=== PATIENT | male | born 1945 | race Caucasian/White ===

== ENCOUNTER 2022-07-19 07:51 | Outpatient (RCR) | payer MEDICARE, BC, SELFPAY | END 2022-09-06 08:38 | disposition home or self-care (01) | PROVIDERS: PCP Family Medicine; Visit Provider Student in an Organized Health Care Education/Training Program | DX: I73.9 Peripheral vascular disease, unspecified (principal); Z51.89 Encounter for other specified aftercare | CPT/HCPCS: 97110; 97140; 97162 ==

== ENCOUNTER 2022-07-31 08:55 | Outpatient (CLI) | payer MEDICARE, BC, SELFPAY | END 2022-07-31 08:56 | disposition home or self-care (01) | LOC: AMB 08-09 19:29 | PROVIDERS: PCP Family Medicine; Visit Provider Family Medicine | DX: S49.91XA Unspecified injury of right shoulder and upper arm, initial encounter (principal); W01.0XXA Fall on same level from slipping, tripping and stumbling without subsequent striking against object, initial encounter; Y92.008 Other place in unspecified non-institutional (private) residence as the place of occurrence of the external cause | CPT/HCPCS: A0425; A0427 ==

== ENCOUNTER 2022-07-31 09:28 | Day surgery (SDC) | payer MEDICARE, BC, SELFPAY ==
[2022-07-31] VITALS (29 sets, daily range): BP systolic 98–157; BP diastolic 56–109; PULSE 70–85; RESP 12–18; TEMP 35.9–36.6; O2SAT 94–100; BMI 29.3; BMI 32.6
--- NOTE | 2022-07-31 | CRLHL7_ITS ---
For Patients: As a result of the Cures Act, medical imaging exams and procedure reports are released immediately into your electronic medical record. You may view this report before your referring provider. If you have questions, please contact your health care provider. INDICATION: Injury COMPARISON: None TECHNIQUE: Two views of the right humerus were acquired FINDINGS: Demineralization. Comminuted fracture involving the right humerus. This is displaced and extends as high as the greater tuberosity. This partially extends into the middle 3rd of the right humerus. No visible dislocation. IMPRESSION: Comminuted displaced right humerus fracture extending as high as the greater tuberosity. Dictated by Jay Jay Murray MD @ 07/31/2022 11:35:19 AM (Electronically Signed)
--- NOTE | 2022-07-31 09:58 | CRLHL7_ITS ---
For Patients: As a result of the Cures Act, medical imaging exams and procedure reports are released immediately into your electronic medical record. You may view this report before your referring provider. If you have questions, please contact your health care provider. Indication: Injury Technique: Three views of the right shoulder were acquired Comparison: None Findings: No dislocation at the glenohumeral or acromioclavicular joint. Moderate acromioclavicular osteoarthritis. Demineralization. Comminuted fracture involving the proximal right humerus. This is displaced. A component extends as high as the greater tuberosity. Impression: Comminuted displaced proximal right humerus fracture extending as high as the greater tuberosity. Dictated by Jay Jay Murray MD @ 07/31/2022 11:33:50 AM (Electronically Signed)
--- NOTE | 2022-07-31 09:59 | CRLHL7_ITS ---
For Patients: As a result of the Century Cures Act, medical imaging exams and procedure reports are released immediately into your electronic medical record. You may view this report before your referring provider. If you have questions, please contact your health care provider. INDICATION: Injury COMPARISON: None TECHNIQUE: CT examination of the cervical spine is performed without contrast using spiral technique. Thin axial, sagittal and coronal reconstructions were made. Please note that all CT scans at this facility use dose modulation, iterative reconstruction, and/or weight-based dosing when appropriate to reduce radiation dose to as low as reasonably achievable. FINDINGS: : There is straightening which is usually due to muscle spasm, positioning or immobilization device. Moderate degenerative changes diffusely but most affecting the mid and lower cervical spine. There is no visible acute fracture, dislocation or destructive process. There are dense atherosclerotic vascular calcifications. IMPRESSION: Straightening. Degenerative changes. No visible acute fracture, dislocation or destructive process. Please note that all CT scans at this facility use dose modulation, iterative reconstruction, and/or weight-based dosing when appropriate to reduce radiation dose to as low as reasonably achievable. Dictated by Jay Jay Murray MD @ 07/31/2022 11:08:30 AM (Electronically Signed)
--- NOTE | 2022-07-31 09:59 | CRLHL7_ITS ---
For Patients: As a result of the Cures Act, medical imaging exams and procedure reports are released immediately into your electronic medical record. You may view this report before your referring provider. If you have questions, please contact your health care provider. INDICATION: Injury COMPARISON: No prior chest radiograph TECHNIQUE: AP sitting and sitting lateral views of the chest were acquired FINDINGS: TUBES AND LINES: None. HEART AND MEDIASTINUM: The heart size is normal. The mediastinal contour appears normal for patient age. LUNGS AND PLEURAL SPACES: The lungs appear normal.The pleural spaces are unremarkable. OSSEOUS STRUCTURES: The osseous structures of the thorax as visualized appear normal. Incidental visualization of a known right humerus fracture. IMPRESSION: No evidence of active pulmonary disease. No visible acute posttraumatic findings regarding the thorax proper. Incidental visualization of a known right humerus fracture. Dictated by Jay Jay Murray MD @ 07/31/2022 11:32:13 AM (Electronically Signed)
--- NOTE | 2022-07-31 09:59 | CRLHL7_ITS ---
For Patients: As a result of the Century Cures Act, medical imaging exams and procedure reports are released immediately into your electronic medical record. You may view this report before your referring provider. If you have questions, please contact your health care provider. INDICATION: Injury COMPARISON: None TECHNIQUE: CT examination of the head was performed as axial sections without intravenous contrast. Images were obtained from the vertex of the skull through the skull base. Please note that all CT scans at this facility use dose modulation, iterative reconstruction, and/or weight-based dosing when appropriate to reduce radiation dose to as low as reasonably achievable. FINDINGS: The brain shows no sign of mass lesion, mass effect, hemorrhage, or edema. There are involutional changes. There is mild cortical atrophy and there is mild white matter disease. There is no hydrocephalus. The visualized portions of the orbits are normal in appearance. The osseous structures are normal in appearance with no sign of abnormality in the skull base or calvarium. IMPRESSION: Involutional changes. No acute-appearing findings. Please note that all CT scans at this facility use dose modulation, iterative reconstruction, and/or weight-based dosing when appropriate to reduce radiation dose to as low as reasonably achievable. Dictated by Jay Jay Murray MD @ 07/31/2022 11:05:16 AM (Electronically Signed)
--- NOTE | 2022-07-31 10:32 | ED.NURSE ---
Imaging came to get pt. After getting up and trasfering to chair pt c/o being dizzy, head rolled back. Imaging called for help. This nurse arrived at pt's side. Pt diaphoretic. B/p taken. . Pt stated that he felt like he was dreaming. Dr Lester updated.
[2022-07-31] MEDS: ONDANSETRON 2 MG/ML inj 4 MG IVP (10:59)
[2022-07-31] MEDS: HYDROmorphone 0.5 mg/0.5 ml inj IVP ×4 (10:59→23:19)
[2022-07-31] MEDS: 0.9 % SODIUM CHLORIDE 500 ML 500 ML IV (11:04)
[2022-07-31 11:46] LABS: Basophils Percent Auto 0.2 % (0.0-3.0); Eosinophils Percent Auto 0.2 % (0.0-7.0); Hematocrit 38.3 % (37.0-53.0); Hemoglobin* 13.2 gm/dL (13.5-17.5); Immature Granulocytes Pct Auto 0.2 %; Lymphocytes Percent Auto 15.7 % (20-44); Mean Corpuscular HGB Conc 35 gm/dL (32-36); Mean Corpuscular Hemoglobin 33 pg (26-34); Mean Corpuscular Volume 97 fL (80-100); Monocytes Percent Auto 7.3 % (0.0-11.0); Neutrophils Percent Auto 76.4 % (42.0-72.0); Platelet Count* 166 K/uL (140-440); RDW Coefficient of Variation % 14.3 % (11.5-15.5); Red Blood Count 3.96 m/uL (4.30-5.90); White Blood Count* 12.13 K/uL (4.50-11.00)
[2022-07-31 11:47] LABS: Slide Review Reflex No
--- NOTE | 2022-07-31 12:04 | ED_ITS ---
HPI - Neck Pain/Injury General Date Seen: 07/31/22 Chief Complaint: Shoulder Injury/Pain Stated Complaint: R shoulder pain Time Seen by Provider: 07/31/22 09:42 Source: patient Mode of arrival: EMS Limitations: no limitations History of Present Illness HPI Narrative: Patient is 76-year-old gentleman who lives independently who this morning fell and slipped and rammed his right shoulder into table on falling down. He has pain in his right shoulder and really inability to lift his right arm since then, no numbness tingling or weakness, denies any neck or head pain, and says he really did hit his head or neck, no problems with breathing or shortness of breath, he was able to clean himself up, as there was an episode of incontinence, rightly was unable to get off the toilet. He then called EMS, cause he did think he can bring himself to the hospital. Ambulance did give him some fentanyl in route here. complaint: other Onset (ago): minute(s) Radiation: right shoulder Severity: moderate Quality: aching Duration: constant Relieving factors: immobilization Exacerbating factors: movement of extremity Context: fall Associated symptoms: none Treatments prior to arrival: none Related Data Home Medications Medication Instructions Recorded Confirmed allopurinol 300 mg tablet 300 mg PO DAILY 07/31/22 07/31/22 cilostazol 100 mg tablet 100 mg PO BID 07/31/22 07/31/22 rosuvastatin 10 mg tablet 10 mg PO DAILY 07/31/22 07/31/22 Allergies Allergy/AdvReac Type Severity Reaction Status Date / Time Penicillins Allergy Intermediate Verified 07/31/22 09:40 Review of Systems Status of ROS: Reports: 10 or more systems reviewed and unremarkable except as noted in History and below [facility] Social History Smoking Status: Current some day smoker What tobacco products do you use: cigars Do you use any of these nicotine containing products: None Second hand tobacco smoke exposure: No How often do you have a drink containing alcohol: 2-3 times a week How many standard drinks containing alcohol do you have on a typical day: 3 or 4 AUDIT-C Alcohol total score: 4 Non-prescribed substance use: denies use Exam Narrative: Exam Narrative: Patient is peaking normally, problem with slurring words, oriented x3. Head eyes ears nose and throat exam show equal pupils, no scleral icterus, extraocular muscles are normal, no facial droop, speech is normal, trachea normal and midline. Thyroid normal midline palpable not enlarged. Chest shows symmetrical rise bilaterally, normal auscultation with no wheezes, no increased work of breathing, no overt bruising or lesions seen, no tenderness is noted on auscultation. Heart sounds normal with no S3-S4 no murmurs clicks or gallops. Abdomen shows no obvious masses or hepatosplenomegaly, no organomegaly, bowel sounds are normal in all quadrants. No tenderness is noted also in all quadrants. Upper and lower extremities with the exception of the right upper extremity show normal power, normal range of motion, pulses are normal, sensations normal, fine motor movements are normal, pelvis is stable to rocking. Cervical spine shows normal range of motion, and palpably not tender. Thoracic spine shows normal range of motion, and palpably not tender, lumbar spine shows no tenderness to palpation percussion and is otherwise normal range of motion. Skin shows no rashes, petechiae or eccymosis. Right upper extremity is held in flexion and abduction, there is some bogginess noted over the right shoulder consistent with either dislocation or more likely fracture. 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 Sensory abnormality noted over the radial area Const: Vital Signs, click to edit/add: Vital Signs - 24 hr 07/31/22 09:35 Temperature 96.7 F L Pulse Rate [Pulse Oximeter] 84 Respiratory Rate 18 Blood Pressure [Le ft Upper Arm] 157/60 H Pulse Oximetry 100 Oxygen Delivery Me thod Room Air Documenting provider has reviewed patient's vital signs: yes Course Course Hospital Course: I did discuss the fracture with from Orthopedics, we will admit him in sling him, pain control, and then consider strongly for surgical operation tomorrow, I will have hospital medicine see him, Vital Signs Vital signs: Initial Vital Signs Temperature 96.7 F L 07/31/22 09:35 Temperature Source Temporal Artery Scan 07/31/22 09:35 Pulse Rate 84 07/31/22 09:35 Respiratory Rate 18 07/31/22 09:35 Blood Pressure 157/60 H 07/31/22 09:35 Blood Pressure Mean 92 07/31/22 09:35 Blood Pressure Position Supine 07/31/22 09:35 Pulse Oximetry 100 07/31/22 09:35 Oxygen Delivery Method 07/31/22 09:35 Vital Signs Temperature 96.7 F L 07/31/22 09:35 Pulse Rate 84 07/31/22 09:35 Respiratory Rate 18 07/31/22 09:35 Blood Pressure 157/60 H 07/31/22 09:35 Pulse Oximetry 100 07/31/22 09:35 Oxygen Delivery Method 07/31/22 09:35 Temperature 96.7 F L 07/31/22 09:35 Pulse Rate 84 07/31/22 09:35 Respiratory Rate 18 07/31/22 09:35 Blood Pressure 157/60 H 07/31/22 09:35 Pulse Oximetry 100 07/31/22 09:35 Oxygen Delivery Method 07/31/22 09:35 MDM - Neck Pain/Injury MDM Narrative Medical decision making narrative: This could be a fracture of the right humerus, versus dislocation, verses clavic ular fracture, cervical spine fracture, head injury. Medical Records Attestation: I reviewed the patient's medical records. Lab Data Attestation: I reviewed the patient's lab results. Labs: Lab Results 07/31/22 07/31/22 07/31/22 Range/Units 11:36 11:36 11:36 WBC 12.13 H (4.50-11.00) K/uL RBC 3.96 L (4.30-5.90) m/uL Hgb 13.2 L (13.5-17.5) gm/dL Hct 38.3 (37.0-53.0) % MCV 97 (80-100) fL MCH 33 (26-34) pg MCHC 35 (32-36) gm/dL RDW Coeff of Samara 14.3 (11.5-15.5) % Plt Count 166 (140-440) K/uL Neut % (Auto) 76.4 H (42.0-72.0) % Lymph % (Auto) 15.7 L (20-44) % [place] % (Auto) 7.3 (0.0-11.0) % Eos % (Auto) 0.2 (0.0-7.0) % Baso % (Auto) 0.2 (0.0-3.0) % Neut # (Auto) 9.30 H (1.7-7.0) K/uL Lymph # (Auto) 1.90 (0.90-2.90) K/uL [place] # (Auto) 0.90 (0.00-0.90) K/UL Eos # (Auto) 0.00 (0.00-0.50) K/uL Baso # (Auto) 0.00 (0.00-0.30) K/uL Abs Immat Gran (auto) 0.00 (0.00-0.30) K/uL Imm/Tot Granulo (auto) 0.2 % INR 1.00 (0.91-1.10) APTT 29 (23-33) Seconds Sodium 139 (135-149) mmol/L Potassium 3.9 (3.6-5.1) mmol/L Chloride 107 (96-114) mmol/L Carbon Dioxide 20 (20-32) mmol/L BUN 17 (7-30) mg/dL Creatinine 0.9 (0.5-1.5) mg/dL Estimated Creat Clear 65.90 Estimated GFR 89 ml/min Glucose 146 H (60-115) mg/dL Calcium 9.6 (8.4-10.6) mg/dL SARS-CoV-2 (PCR) (Negative) 07/31/22 Range/Units 11:37 WBC (4.50-11.00) K/uL RBC (4.30-5.90) m/uL Hgb (13.5-17.5) gm/dL Hct (37.0-53.0) % MCV (80-100) fL MCH (26-34) pg MCHC (32-36) gm/dL RDW Coeff of Samara (11.5-15.5) % Plt Count (140-440) K/uL Neut % (Auto) (42.0-72.0) % Lymph % (Auto) (20-44) % [place] % (Auto) (0.0-11.0) % Eos % (Auto) (0.0-7.0) % Baso % (Auto) (0.0-3.0) % Neut # (Auto) (1.7-7.0) K/uL Lymph # (Auto) (0.90-2.90) K/uL [place] # (Auto) (0.00-0.90) K/UL Eos # (Auto) (0.00-0.50) K/uL Baso # (Auto) (0.00-0.30) K/uL Abs Immat Gran (auto) (0.00-0.30) K/uL Imm/Tot Granulo (auto) % INR (0.91-1.10) APTT (23-33) Seconds Sodium (135-149) mmol/L Potassium (3.6-5.1) mmol/L Chloride (96-114) mmol/L Carbon Dioxide (20-32) mmol/L BUN (7-30) mg/dL Creatinine (0.5-1.5) mg/dL Estimated Creat Clear Estimated GFR ml/min Glucose (60-115) mg/dL Calcium (8.4-10.6) mg/dL SARS-CoV-2 (PCR) Negative SARS-CoV-2 (Negative) Imaging Data CT- Other: My impression: CT is done of his head neck which showed no acute abnormality by my review, x- ray of the right humerus, shows on upper 3rd humeral fracture, oblique in nature, with [id number] displacement, and also mild angulation, Discharge Plan Discharge Clinical Impression: Fx humeral neck Patient Disposition: Admitted As Inpatient Condition: Stable Prescriptions: No Action allopurinol 300 mg tablet 300 mg PO DAILY rosuvastatin 10 mg tablet 10 mg PO DAILY cilostazol 100 mg tablet 100 mg PO BID Follow Up/Referrals: Bassam Gilliam MD [Primary Care Provider] -
[2022-07-31 12:09] LABS: Chloride* 107 mmol/L (96-114); Potassium* 3.9 mmol/L (3.6-5.1); Sodium* 139 mmol/L (135-149)
[2022-07-31 12:11] LABS: Partial Thromboplastin Time* 29 Seconds (23-33); Prothrombin Time 13.8 Seconds
[2022-07-31 12:12] LABS: Carbon Dioxide* 20 mmol/L (20-32); Creatinine* 0.9 mg/dL (0.5-1.5); Estimated Glomerular Filt Rate 89 ml/min
[2022-07-31 12:13] LABS: Blood Urea Nitrogen* 17 mg/dL (7-30); Calcium* 9.6 mg/dL (8.4-10.6); Glucose* 146 mg/dL (60-115)
[2022-07-31 12:28] LABS: SARS PCR* Negative SARS-CoV-2 (Negative)
--- NOTE | 2022-07-31 13:23 | W.PC.EDHO ---
Primary Language: Preferred Language: Orientation Status: [x] Alert & Oriented [] Slight Confusion [] Known Dx Dementia Transfers By: [x] Assist of 1 [] Assist of 2 [] Lift Active Medications Discontinued Medications Generic Name Dose Route Start Last Admin Trade Name Haleigh PRN Reason Stop Dose Admin Hydromorphone HCl 0.5 mg 07/31/22 09:58 07/31/22 10:59 Hydromorphone 0.5 Mg/0.5 Ml Inj IVP 07/31/22 09:59 0.5 mg ONCE ONE Administration Sodium Chloride 500 mls @ 500 mls/hr 07/31/22 09:58 07/31/22 11:04 0.9 % Sodium Chloride 500 Ml IV 07/31/22 10:57 500 mls/hr .Q1H ONE Administration Ondansetron HCl 4 mg 07/31/22 09:58 07/31/22 10:59 Ondansetron 2 Mg/Ml Inj IVP 07/31/22 09:59 4 mg ONCE ONE Administration Description of Symptoms ED Triage Present Problem pt was going to take shower, was taking off robe Description as went through door and stumbled. r shoulder hit towel bar, broke towel bar and fell to floor. pt said was incont of little bm. denies LOC or hitting head. ems gave pt 25mcg fentanyl ED Triage Date of Onset of 07/31/22 Symptoms Female History Patient Pain Pain Description [Right Dull, Achy Shoulder] Pain Intensity [Right Shoulder 2 ] Pain Intensity [Right Shoulder 2 ] Pain Intensity 3 Pain Intensity 2 Pain Scale Used [Right Numeric (1 - 10) Shoulder] Pain Scale Used Numeric (1 - 10) Pain Scale Used Numeric (1 - 10) IV Insertion/Site Date of IV Line Insertion [ 07/31/22 Hand] Oxygen Administration Pulse Oximetry 100 Oxygen Delivery Method Room Air
--- NOTE | 2022-07-31 14:07 | ED.NURSE ---
Report to NAOMI Rivas
--- NOTE | 2022-07-31 14:51 | PM.IMHP1 ---
Hospitalist- H&P: HPI History of Present Illness Time Seen by Provider: 15:04 Date Seen: 07/31/22 Chief complaint: R shoulder pain Narrative: Lalo Llanos is a 76 year old male here for right shoulder pain after a fall at home. Lalo was in his usual state of health when he was getting ready this morning. He was in a hurry and slipped on his bathroom scale. He fell into a metal towel bar with his right shoulder, breaking the bar off the wall. He was incontinent of stool at the time and cleaned this up prior to calling EMS. He had to do this 1 handed because he was unable to move his right arm at all after the fall. He denies hitting his head and denies loss consciousness. He denies any numbness or tingling of his right hand and is able to move the fingers on his right hand without difficulty he just cannot move his upper arm or shoulder. He started platal a few days ago. He complains of a dull headache since starting it. Yesterday morning had black loose smelly stool. Today's BM was brown and soft, not black. Review of Systems Status of ROS: Reports: 10 or more systems reviewed and unremarkable except as noted in History and below [facility] Medical History (Updated 07/31/22 @ 16:43 by Charu Aceves MD) Benign paroxysmal positional vertigo of right ear Gout Hepatitis A Hepatitis B Impaired fasting glucose Non morbid obesity due to excess calories Peripheral arterial disease Peyronie's disease Surgical History (Updated 07/31/22 @ 14:58 by Charu Aceves MD) H/O hand surgery History of rectal surgery History of refractive surgery Hx of colonoscopy Family History (Updated 07/31/22 @ 15:01 by Charu Aceves MD) Aunt Diabetes Aunt Diabetes Paternal Grandmother Diabetes Father Coronary artery disease Myocardial infarction, Onset Age: 51 S/P CABG (coronary artery bypass graft) Mother Coronary artery disease High blood pressure S/P CABG (coronary artery bypass graft) Macular degeneration Social History (Updated 07/31/22 @ 15:36 by Charu Aceves MD) Narrative: Cigar 3-4 / year. Drink 3 beers 3x/week. Denies recreational drug use. Full code. No retirement life support. Highest level of school completed/degree received: don't know Smoking Status: Current some day smoker What tobacco products do you use: cigars Do you use any of these nicotine containing products: None Second hand tobacco smoke exposure: No How often do you have a drink containing alcohol: 2-3 times a week How many standard drinks containing alcohol do you have on a typical day: 3 or 4 AUDIT-C Alcohol total score: 4 Non-prescribed substance use: denies use Caffeine: No service: No Meds Home Medications and Allergies Home Medications Medication Instructions Recorded Confirmed Type allopurinol 300 mg tablet 300 mg PO DAILY 07/31/22 07/31/22 History aspirin 81 mg tablet,delayed 81 mg PO DAILY 07/31/22 07/31/22 History release (Adult Aspirin Regimen) cilostazol 100 mg tablet 100 mg PO BID 07/31/22 07/31/22 History multivitamin (Daily Multi-Vitamin 1 tab PO DAILY 07/31/22 07/31/22 History tablet) rosuvastatin 10 mg tablet 10 mg PO HS 07/31/22 07/31/22 History Allergies Allergy/AdvReac Type Severity Reaction Status Date / Time Penicillins Allergy Intermediate Verified 07/31/22 09:40 Exam Narrative: Exam Narrative: General: No acute distress. Awake alert oriented x3. Winces in pain whenever he moves his chest or gets a spasm in his right shoulder. HEENT: Normocephalic atraumatic, pupils equally round and reactive to light and accommodation. Oropharynx clear. Mucous membranes are moist. No cervical lymphadenopathy, thyromegaly or carotid bruits. No JVD. Cardiovascular: Regular rate and rhythm. No murmurs, gallops, or rubs. Chest: No increased work of breathing. Clear to auscultation bilaterally. No crackles or wheezes. Abdomen: Bowel sounds present. Soft, nondistended, nontender. No hepatosplenomegaly or masses. Extremities: Right arm is in an immobilizer. Edema and bruising is present on the upper arm near the axilla. Neurovascularly intact in the right hand. No edema, no cyanosis or clubbing. Skin: No jaundice, no pallor, no rashes. Const: Vital Signs, click to edit/add: Vital Signs - 24 hr 07/31/22 09:35 07/31/22 09:46 07/31/22 10:03 Temperature 96.7 F L Pulse Rate 85 Pulse Rate [Pulse Oximeter] 84 Respiratory Rate 18 Blood Pressure 127/64 Blood Pressure [Le ft Upper Arm] 157/60 H Pulse Oximetry 100 99 Oxygen Delivery Me thod Room Air 07/31/22 10:27 07/31/22 10:28 07/31/22 11:07 Temperature Pulse Rate 82 83 Pulse Rate [Pulse Oximeter] Respiratory Rate Blood Pressure 98/63 Blood Pressure [Le ft Upper Arm] Pulse Oximetry 97 100 Oxygen Delivery Me thod 07/31/22 11:09 07/31/22 11:15 07/31/22 11:30 Temperature Pulse Rate 83 82 77 Pulse Rate [Pulse Oximeter] Respiratory Rate Blood Pressure 151/109 H Blood Pressure [Le ft Upper Arm] Pulse Oximetry 95 100 100 Oxygen Delivery Me thod 07/31/22 11:46 07/31/22 12:00 07/31/22 12:02 Temperature Pulse Rate 76 71 70 Pulse Rate [Pulse Oximeter] Respiratory Rate Blood Pressure 124/59 L Blood Pressure [Le ft Upper Arm] Pulse Oximetry 99 97 97 Oxygen Delivery Me thod 07/31/22 12:15 07/31/22 12:30 07/31/22 12:32 Temperature Pulse Rate 71 73 82 Pulse Rate [Pulse Oximeter] Respiratory Rate Blood Pressure 117/62 Blood Pressure [Le ft Upper Arm] Pulse Oximetry 96 95 95 Oxygen Delivery Me od 07/31/22 12:53 07/31/22 13:00 07/31/22 13:02 Temperature Pulse Rate 77 74 76 Pulse Rate [Pulse Oximeter] Respiratory Rate Blood Pressure 138/65 Blood Pressure [Le ft Upper Arm] Pulse Oximetry 100 98 99 Oxygen Delivery Me thod 07/31/22 13:15 07/31/22 13:30 07/31/22 13:32 Temperature Pulse Rate 74 78 78 Pulse Rate [Pulse Oximeter] Respiratory Rate Blood Pressure 135/66 Blood Pressure [Le ft Upper Arm] Pulse Oximetry 98 100 100 Oxygen Delivery Me thod 07/31/22 13:45 07/31/22 14:00 07/31/22 14:02 Temperature Pulse Rate 84 75 78 Pulse Rate [Pulse Oximeter] Respiratory Rate Blood Pressure 120/56 L Blood Pressure [Le ft Upper Arm] Pulse Oximetry 100 98 98 Oxygen Delivery Me od 07/31/22 14:15 Temperature Pulse Rate 75 Pulse Rate [Pulse Oximeter] Respiratory Rate Blood Pressure Blood Pressure [Le ft Upper Arm] Pulse Oximetry 94 Oxygen Delivery Me thod Documenting provider has reviewed patient's vital signs: yes Hospitalist - H&P: Result Labs Labs: Short CBC 07/31/22 Range/Units 11:36 WBC 12.13 H (4.50-11.00) K/uL Hgb 13.2 L (13.5-17.5) gm/dL Hct 38.3 (37.0-53.0) % Plt Count 166 (140-440) K/uL BMP 07/31/22 11:36 Sodium 139 Potassium 3.9 Chloride 107 Carbon Dioxide 20 BUN 17 Creatinine 0.9 Glucose 146 H Calcium 9.6 07/31/2022 9:47 a.m. EKG: Sinus rhythm with premature atrial complexes. Id 83 beats per minute. Nonspecific ST abnormality. Prolonged QT. abnormal EKG. Ordering Physician: Leonardo Lester M.D. Date of Service: 07/31/22 Procedure(s): XR humerus RT Accession Number(s): [id number] cc: Bassam Gilliam M.D.; Leonardo Lester M.D.~ For Patients: As a result of the Cures Act, medical imaging exams and procedure reports are released immediately into your electronic medical record. You may view this report before your referring provider. If you have questions, please contact your health care provider. INDICATION: Injury COMPARISON: None TECHNIQUE: Two views of the right humerus were acquired FINDINGS: Demineralization. Comminuted fracture involving the right humerus. This is displaced and extends as high as the greater tuberosity. This partially extends into the middle 3rd of the right humerus. No visible dislocation. IMPRESSION: Comminuted displaced right humerus fracture extending as high as the greater tuberosity. Dictated by Jay Jay Murray MD @ 07/31/2022 11:35:19 AM (Electronically Signed) Ordering Physician: Leonardo Lester M.D. Date of Service: 07/31/22 Procedure(s): XR shoulder RT min 2V Accession Number(s): [id number] cc: Bassam Gilliam M.D.; Leonardo Lester M.D.~ For Patients: As a result of the Cures Act, medical imaging exams and procedure reports are released immediately into your electronic medical record. You may view this report before your referring provider. If you have questions, please contact your health care provider. Indication: Injury Technique: Three views of the right shoulder were acquired Comparison: None Findings: No dislocation at the glenohumeral or acromioclavicular joint. Moderate acromioclavicular osteoarthritis. Demineralization. Comminuted fracture involving the proximal right humerus. This is displaced. A component extends as high as the greater tuberosity. Impression: Comminuted displaced proximal right humerus fracture extending as high as the greater tuberosity. Dictated by Jay Jay Murray MD @ 07/31/2022 11:33:50 AM (Electronically Signed) Ordering Physician: Leonardo Lester M.D. Date of Service: 07/31/22 Procedure(s): CT cervical spine wo con Accession Number(s): [id number] cc: Bassam Gilliam M.D.; Leonardo Lester M.D.~ For Patients: As a result of the Cures Act, medical imaging exams and procedure reports are released immediately into your electronic medical record. You may view this report before your referring provider. If you have questions, please contact your health care provider. INDICATION: Injury COMPARISON: None TECHNIQUE: CT examination of the cervical spine is performed without contrast using spiral technique. Thin axial, sagittal and coronal reconstructions were made. Please note that all CT scans at this facility use dose modulation, iterative reconstruction, and/or weight-based dosing when appropriate to reduce radiation dose to as low as reasonably achievable. FINDINGS: : There is straightening which is usually due to muscle spasm, positioning or immobilization device. Moderate degenerative changes diffusely but most affecting the mid and lower cervical spine. There is no visible acute fracture, dislocation or destructive process. There are dense atherosclerotic vascular calcifications. IMPRESSION: Straightening. Degenerative changes. No visible acute fracture, dislocation or destructive process. Please note that all CT scans at this facility use dose modulation, iterative reconstruction, and/or weight-based dosing when appropriate to reduce radiation dose to as low as reasonably achievable. Dictated by Jay Jay Murray MD @ 07/31/2022 11:08:30 AM (Electronically Signed) Ordering Physician: Leonardo Lester M.D. Date of Service: 07/31/22 Procedure(s): XR chest 2V Accession Number(s): [id number] cc: Bassam Gilliam M.D.; Leonardo Lester M.D.~ For Patients: As a result of the Cures Act, medical imaging exams and procedure reports are released immediately into your electronic medical record. You may view this report before your referring provider. If you have questions, please contact your health care provider. INDICATION: Injury COMPARISON: No prior chest radiograph TECHNIQUE: AP sitting and sitting lateral views of the chest were acquired FINDINGS: TUBES AND LINES: None. HEART AND MEDIASTINUM: The heart size is normal. The mediastinal contour appears normal for patient age. LUNGS AND PLEURAL SPACES: The lungs appear normal.The pleural spaces are unremarkable. OSSEOUS STRUCTURES: The osseous structures of the thorax as visualized appear normal. Incidental visualization of a known right humerus fracture. IMPRESSION: No evidence of active pulmonary disease. No visible acute posttraumatic findings regarding the thorax proper. Incidental visualization of a known right humerus fracture. Dictated by Jay Jay Murray MD @ 07/31/2022 11:32:13 AM (Electronically Signed) Ordering Physician: Leonardo Lester M.D. Date of Service: 07/31/22 Procedure(s): CT head/brain wo con Accession Number(s): [id number] cc: Bassam Gilliam M.D.; Leonardo Lester M.D.~ For Patients: As a result of the Cures Act, medical imaging exams and procedure reports are released immediately into your electronic medical record. You may view this report before your referring provider. If you have questions, please contact your health care provider. INDICATION: Injury COMPARISON: None TECHNIQUE: CT examination of the head was performed as axial sections without intravenous contrast. Images were obtained from the vertex of the skull through the skull base. Please note that all CT scans at this facility use dose modulation, iterative reconstruction, and/or weight-based dosing when appropriate to reduce radiation dose to as low as reasonably achievable. FINDINGS: The brain shows no sign of mass lesion, mass effect, hemorrhage, or edema. There are involutional changes. There is mild cortical atrophy and there is mild white matter disease. There is no hydrocephalus. The visualized portions of the orbits are normal in appearance. The osseous structures are normal in appearance with no sign of abnormality in the skull base or calvarium. IMPRESSION: Involutional changes. No acute-appearing findings. Please note that all CT scans at this facility use dose modulation, iterative reconstruction, and/or weight-based dosing when appropriate to reduce radiation dose to as low as reasonably achievable. Dictated by Jay Jay Murray MD @ 07/31/2022 11:05:16 AM (Electronically Signed) Assessment and Plan Assessment and plan (1) Fx humeral neck: Status: Acute (2) Peripheral arterial disease: Problem comment: Right LE claudication, started Pletal a few days ago Status: Acute (3) Impaired fasting glucose: Status: Acute (4) Complaint of melena: Status: Acute Plan 76-year-old male who recently started Pletal for right lower extremity claudication. I have reviewed his records from [facility] as well as his EKG and plain films in the radiologist's impressions from today. He fell and broke his right humerus for which he will need surgery. This is scheduled for tomorrow. I will let him eat today and keep him NPO after midnight with some gentle IV fluids. I suspect he likely had good deal of blood loss into the area of the fracture considering that he is on Pletal. Will be holding that tonight and tomorrow morning prior to surgery. From a cardiopulmonary standpoint there is no further workup that needs to happen prior to surgery. I did speak with Dr. Hernandez today about how Lalo has a slightly higher cardiac risk for surgeries since he has peripheral arterial disease. He has a history of impaired fasting glucose and I will check a hemoglobin A1c. He also complained of possible melena yesterday although this has apparently resolved. His last colonoscopy was in 2007. Check a Hemoccult stool and hold Pletal. He will likely need outpatient colonoscopy.
[2022-07-31] MEDS: LACTATED RINGERS 1000 ML 1,000 ML 75 ML IV (17:12)
[2022-07-31] MEDS: OXYCODONE 5 MG TABLET PO ×2 (17:13→21:13)
--- NOTE | 2022-07-31 22:20 | PC.NURSE ---
End of Shift: Patient pleasant and cooperative. Patient vitally stable, lungs clear, BS WNL, IV patent running LR at 75. Patient tolerating regular diet, eating all of dinner. Patient rates pain 3/10 when in bed not moving. When attempting to get up to use the toilet pain increased to 10/10, patient could not walk to toilet as he was worried he would black out due to pain. Oxy 5 mg given once, then 10mg of oxy given once, along with 0.5 of dilauded. Patient right arm in sling, right shoulder is swollen.
[2022-08-01] VITALS (24 sets, daily range): BP systolic 104–161; BP diastolic 52–94; PULSE 47–108; RESP 12–18; TEMP 36.4–36.9; O2SAT 90–99; BMI 29.2
[2022-08-01] MEDS: HYDROmorphone 0.5 mg/0.5 ml inj IVP ×4 (01:37→10:07)
--- NOTE | 2022-08-01 05:23 | PC.NURSE ---
Shift note: The pt has been c/o mild to moderate right upper arm pain throughout the night; the pain has been well managed with PRN Dilaudid IVP and active ice. Right radial pulse was palpable, right hand capillary refill has been < 3 seconds, denied numbness or tingling to the right arm. Sling has been holding the right arm. The pt has bee denying chest pain, short of breath and any other acute distress throughout the night. The pt has been NPO since midnight.
[2022-08-01] MEDS: LACTATED RINGERS 1000 ML 1,000 ML 75 ML IV ×2 (06:08→19:51)
--- NOTE | 2022-08-01 09:48 | PM.ORCN ---
History of Present Illness HPI Date Seen: 08/01/22 Chief complaint: R shoulder pain Narrative: Lalo is a pleasant 76 year old male who presented to [facility] with complaint of right shoulder pain after a fall at home on 07/31/2022. While getting ready in the morning, he slipped on his bathroom floor/tripped on his bathroom scale and fell into the wall knocking the tell bar down but also injuring his right arm/shoulder. He notes that he did have stool incontinence and felt the need to clean this up. Following that, he called 911 himself. He denies hitting his head and denies loss consciousness.? He denies any numbness or tingling of his right hand and is able to move the fingers on his right hand without difficulty he just cannot move his upper arm or shoulder. Review of Systems Narrative: Right arm pain related to the proximal humerus fracture, but otherwise no fevers or chills. No numbness or tingling. No history of blood clotting or bleeding disorders in himself or family members. Remaining 10 point review systems otherwise negative outside of documented history. [facility] Medical History Benign paroxysmal positional vertigo of right ear Gout Hepatitis A Hepatitis B Impaired fasting glucose Non morbid obesity due to excess calories Peripheral arterial disease Peyronie's disease Surgical History H/O hand surgery History of rectal surgery History of refractive surgery Hx of colonoscopy Family History Aunt Diabetes Aunt Diabetes Paternal Grandmother Diabetes Father Coronary artery disease Myocardial infarction, Onset Age: 51 S/P CABG (coronary artery bypass graft) Mother Coronary artery disease High blood pressure S/P CABG (coronary artery bypass graft) Macular degeneration Social History Narrative: Cigar 3-4 / year. Drink 3 beers 3x/week. Denies recreational drug use. Full code. No prison life support. Highest level of school completed/degree received: don't know Smoking Status: Current some day smoker What tobacco products do you use: cigars Do you use any of these nicotine containing products: None Second hand tobacco smoke exposure: No How often do you have a drink containing alcohol: 2-3 times a week How many standard drinks containing alcohol do you have on a typical day: 3 or 4 AUDIT-C Alcohol total score: 4 Non-prescribed substance use: denies use Caffeine: No service: No Meds Home Medications and Allergies Home Medications Medication Instructions Recorded Confirmed Type allopurinol 300 mg tablet 300 mg PO DAILY 07/31/22 07/31/22 History multivitamin (Daily Multi-Vitamin 1 tab PO DAILY 07/31/22 07/31/22 History tablet) rosuvastatin 10 mg tablet 10 mg PO HS 07/31/22 07/31/22 History Allergies Allergy/AdvReac Type Severity Reaction Status Date / Time Penicillins Allergy Intermediate Verified 07/31/22 09:40 Ortho Exam Narrative Exam Narrative: He is alert and oriented x3. He is cooperative with the exam. He provides all the history and again can attest to the exam findings. Right arm exam shows significant swelling and edema about the shoulder, arm, and even elbow area. Tender palpation around the humerus midshaft and more proximal. Minimally tender around the elbow itself. No significant ecchymosis today. No lacerations or abrasions about the right upper extremity. Neurologic intact in the axillary, radial, ulnar, and median nerve distribution to sensory light touch and motor function preoperatively. He does have decreased ability to extend his thumb which has been longstanding related to remote injury. He also has decreased ability to fully extend his fingers but again longstanding pre existing his recent fall. 2+ radial pulse. Digit tips pink, warm, brisk cap refill. Strength and stability testing around the shoulder elbow or deferred due to the humerus fracture. Const Vital Signs, click to edit/add: Vital Signs - 24 hr 07/31/22 10:03 07/31/22 10:27 07/31/22 10:28 Temperature Pulse Rate 82 Pulse Rate [Pulse Oximeter] Respiratory Rate Blood Pressure 127/64 98/63 Blood Pressure [Left Arm] Pulse Oximetry 97 Oxygen Delivery Method 07/31/22 11:07 07/31/22 11:09 07/31/22 11:15 Temperature Pulse Rate 83 83 82 Pulse Rate [Pulse Oximeter] Respiratory Rate Blood Pressure 151/109 H Blood Pressure [Left Arm] Pulse Oximetry 100 95 100 Oxygen Delivery Method 07/31/22 11:30 07/31/22 11:46 07/31/22 12:00 Temperature Pulse Rate 77 76 71 Pulse Rate [Pulse Oximeter] Respiratory Rate Blood Pressure Blood Pressure [Left Arm] Pulse Oximetry 100 99 97 Oxygen Delivery Method 07/31/22 12:02 07/31/22 12:15 07/31/22 12:30 Temperature Pulse Rate 70 71 73 Pulse Rate [Pulse Oximeter] Respiratory Rate Blood Pressure 124/59 L Blood Pressure [Left Arm] Pulse Oximetry 97 96 95 Oxygen Delivery Method 07/31/22 12:32 07/31/22 12:53 07/31/22 13:00 Temperature Pulse Rate 82 77 74 Pulse Rate [Pulse Oximeter] Respiratory Rate Blood Pressure 117/62 Blood Pressure [Left Arm] Pulse Oximetry 95 100 98 Oxygen Delivery Method 07/31/22 13:02 07/31/22 13:15 07/31/22 13:30 Temperature Pulse Rate 76 74 78 Pulse Rate [Pulse Oximeter] Respiratory Rate Blood Pressure 138/65 Blood Pressure [Left Arm] Pulse Oximetry 99 98 100 Oxygen Delivery Method 07/31/22 13:32 07/31/22 13:45 07/31/22 14:00 Temperature Pulse Rate 78 84 75 Pulse Rate [Pulse Oximeter] Respiratory Rate Blood Pressure 135/66 Blood Pressure [Left Arm] Pulse Oximetry 100 100 98 Oxygen Delivery Method 07/31/22 14:02 07/31/22 14:15 07/31/22 14:56 Temperature 97.3 F L Pulse Rate 78 75 Pulse Rate [Pulse Oximeter] Respiratory Rate 18 Blood Pressure 120/56 L Blood Pressure [Left Arm] 155/78 H Pulse Oximetry 98 94 99 Oxygen Delivery Method Room Air 07/31/22 16:15 07/31/22 15:00 07/31/22 19:45 Temperature 97.9 F 97.8 F Pulse Rate Pulse Rate [Pulse Oximeter] 83 83 80 Respiratory Rate 12 12 12 Blood Pressure Blood Pressure [Left Arm] 119/64 135/66 Pulse Oximetry 98 98 Oxygen Delivery Method Room Air Room Air 08/01/22 00:45 08/01/22 00:45 08/01/22 06:00 Temperature 98.4 F 98 F Pulse Rate Pulse Rate [Pulse Oximeter] 75 75 47 L Respiratory Rate 12 16 16 Blood Pressure Blood Pressure [Left Arm] 158/71 H 157/66 H Pulse Oximetry 96 98 Oxygen Delivery Method Room Air Room Air 08/01/22 07:00 Temperature 98.2 F Pulse Rate Pulse Rate [Pulse Oximeter] 98 Respiratory Rate 18 Blood Pressure Blood Pressure [Left Arm] 118/94 H Pulse Oximetry 99 Oxygen Delivery Method Room Air Results Labs Labs: Laboratory Results - last 48 hr 07/31/22 07/31/22 07/31/22 11:36 11:36 11:36 WBC 12.13 H RBC 3.96 L Hgb 13.2 L Hct 38.3 MCV 97 MCH 33 MCHC 35 RDW Coeff of Samara 14.3 Plt Count 166 Neut % (Auto) 76.4 H Lymph % (Auto) 15.7 L [place] % (Auto) 7.3 Eos % (Auto) 0.2 Baso % (Auto) 0.2 Neut # (Auto) 9.30 H Lymph # (Auto) 1.90 [place] # (Auto) 0.90 Eos # (Auto) 0.00 Baso # (Auto) 0.00 Abs Immat Gran (auto) 0.00 Imm/Tot Granulo (auto) 0.2 INR 1.00 APTT 29 Sodium 139 Potassium 3.9 Chloride 107 Carbon Dioxide 20 BUN 17 Creatinine 0.9 Estimated Creat Clear 65.90 Estimated GFR 89 Glucose 146 H Calcium 9.6 SARS-CoV-2 (PCR) 07/31/22 08/01/22 11:37 05:57 WBC RBC Hgb 11.0 L Hct MCV MCH MCHC RDW Coeff of Samara Plt Count Neut % (Auto) Lymph % (Auto) [place] % (Auto) Eos % (Auto) Baso % (Auto) Neut # (Auto) Lymph # (Auto) [place] # (Auto) Eos # (Auto) Baso # (Auto) Abs Immat Gran (auto) Imm/Tot Granulo (auto) INR APTT Sodium Potassium Chloride Carbon Dioxide BUN Creatinine Estimated Creat Clear Estimated GFR Glucose Calcium SARS-CoV-2 (PCR) Negative SARS-CoV-2 Diagnostic results Additional Comments: Two views of the right humerus and three views right shoulder from [facility] dated 07/31/2022 ordered by during provider but reviewed by me. This shows a right proximal humerus fracture through the surgical neck with extension to the greater tuberosity consistent with a three-part proximal humerus fracture. There is extension down to the mid humeral shaft. The fracture extends approximately 180 mm from the most proximal humeral head. The shaft component is a spiral oblique type pattern. The proximal humerus component does have some mild comminution through the neck fracture. This appears to be an extra-articular fracture. Otherwise, the glenohumeral joint remains reduced. Assessment and Plan Assessment and plan (1) Fx humeral neck: Problem comment: - s/p day 1 right proximal humerus 3 part fracture open reduction internal fixation with Dr. Maldonado of Orthopedic Surgery on 08/01 Status: Acute Total time spent: Total time spent is greater than 50% in coordination of care (as documented) at patient's floor/unit and/or counseling patient: (2) Peripheral arterial disease: Problem comment: - RLE claudication, started Pletal just prior to admission - holding now due to surgery and possible melena Status: Acute Total time spent: Total time spent is greater than 50% in coordination of care (as documented) at patient's floor/unit and/or counseling patient: (3) Impaired fasting glucose: Problem comment: - HgbA1C 5.4 Status: Acute Total time spent: Total time spent is greater than 50% in coordination of care (as documented) at patient's floor/unit and/or counseling patient: (4) Complaint of melena: Problem comment: - happened once prior to admission, normal stool since. Hemoccult stool pending. Recommend outpatient colonoscopy and hold Aspirin and cilostazol until then Status: Acute Total time spent: Total time spent is greater than 50% in coordination of care (as documented) at patient's floor/unit and/or counseling patient: Plan I had a good discussion today 0 (08/01/2022) with Lalo regarding his findings. In my opinion, as he lives alone and needs his independence, I do not think nonoperative management will serve him very well. I do think surgery is indicated. This be for right humerus ORIF. We discussed in details the risks, benefits, and alternatives. We will plan for surgery on 08/01/2022. His fracture pattern is very complex in that it will require unique hardware. We have been in contact with the [employer] to supply such. In addition, his body habitus (muscular upper extremity) will make the surgery more challenging technically. Finally, while his radial nerve appears to be working currently, we will need to follow this closely the postoperative time. This is a high risk of neurapraxia following the procedure. I communicated clearly that the radial nerve may shut down. We will have to watch this and monitor this. He will be a little more difficult to assess due to his chronic digit extension dysfunction. Ultimately, I do anticipate he will need to stay the night of the operation but may be able to go home versus fpc facility thereafter depending on his other medical issues and safety. I believe all questions were answered. For now, sling for comfort. NPO.
--- NOTE | 2022-08-01 09:51 | REH.OT ---
OT eval on hold until after surgery. Will reattempt in the PM.
--- NOTE | 2022-08-01 10:02 | PM.IMPN1 ---
Progress Note: A&P Assessment and plan (1) Fx humeral neck: Problem details: Surgery planned for 08/01/22, Dr. Maldonado Status: Acute (2) Complaint of melena: Problem details: This happened one time, had normal stool since. Hemoccult stool pending. Recommend outpatient colonoscopy and hold Aspirin and cilostazol until then. Status: Acute (3) Impaired fasting glucose: Problem details: HgbA1C pending Status: Acute (4) Peripheral arterial disease: Problem details: Right LE claudication, started Pletal a few days ago - holding now due to surgery and possible melena. Status: Acute (5) Acute blood loss anemia: Problem details: suspect secondary to right humeral fracture Status: Acute Plan 76-year-old male who has a right humeral fracture after a fall yesterday. He is awaiting shoulder surgery plan for today. Pain control is better today. I will write for a mg of IV Dilaudid to be given prior to his transfer from this floor over to the surgical area. Had episode of melena with normal stool since. Hemoccult pending. He will need outpatient colonoscopy for melena. Hgb trended downward, suspect due to bleeding from fracture. No need for transfusion at this time. Okay to go to surgery today. Subjective Time Seen by Provider: 08:53 Date Seen: 08/01/22 Interval history: Llao had some trouble getting ahead of the pain yesterday, but it has been better now today. He is concerned about what will happen when they roll his bed through the monsivais for surgery. No other complaints. Exam Narrative: Exam Narrative: General: No acute distress. Awake alert oriented x3. Appears more comfortable today. No wincing. Cardiovascular: Regular rate and rhythm. No murmurs, gallops, or rubs. Chest: No increased work of breathing. Clear to auscultation bilaterally. No crackles or wheezes. Abdomen: Bowel sounds present. Soft, nondistended, nontender. No hepatosplenomegaly or masses. Extremities: Right arm is in an immobilizer. Edema and bruising is present on the upper arm near the axilla. Neurovascularly intact in the right hand. No edema, no cyanosis or clubbing. Const: Vital Signs, click to edit/add: Vital Signs - 24 hr 07/31/22 10:03 07/31/22 10:27 07/31/22 10:28 Temperature Pulse Rate 82 Pulse Rate [Pulse Oximeter] Respiratory Rate Blood Pressure 127/64 98/63 Blood Pressure [Le ft Arm] Pulse Oximetry 97 [facility] 11:07 07/31/22 11:09 07/31/22 11:15 Temperature Pulse Rate 83 83 82 Pulse Rate [Pulse Oximeter] Respiratory Rate Blood Pressure 151/109 H Blood Pressure [Le ft Arm] Pulse Oximetry 100 95 100 [facility] 07/[facility]/22 11:30 07/31/22 11:46 07/31/22 12:00 Temperature Pulse Rate 77 76 71 Pulse Rate [Pulse Oximeter] Respiratory Rate Blood Pressure Blood Pressure [Le ft Arm] Pulse Oximetry 100 99 97 [facility] 07/[facility]/22 12:02 07/31/22 12:15 07/31/22 12:30 Temperature Pulse Rate 70 71 73 Pulse Rate [Pulse Oximeter] Respiratory Rate Blood Pressure 124/59 L Blood Pressure [Le ft Arm] Pulse Oximetry 97 96 95 [facility] 07/[facility]/22 12:32 07/31/22 12:53 07/31/22 13:00 Temperature Pulse Rate 82 77 74 Pulse Rate [Pulse Oximeter] Respiratory Rate Blood Pressure 117/62 Blood Pressure [Le ft Arm] Pulse Oximetry 95 100 98 [facility] 07/[facility]/22 13:02 07/31/22 13:15 07/31/22 13:30 Temperature Pulse Rate 76 74 78 Pulse Rate [Pulse Oximeter] Respiratory Rate Blood Pressure 138/65 Blood Pressure [Le ft Arm] Pulse Oximetry 99 98 100 [facility] 07[facility]22 13:32 07/31/22 13:45 07/31/22 14:00 Temperature Pulse Rate 78 84 75 Pulse Rate [Pulse Oximeter] Respiratory Rate Blood Pressure 135/66 Blood Pressure [Le ft Arm] Pulse Oximetry 100 100 98 [facility] 07/[facility]/22 14:02 07/31/22 14:15 07/31/22 14:56 Temperature 97.3 F L Pulse Rate 78 75 Pulse Rate [Pulse Oximeter] Respiratory Rate 18 Blood Pressure 120/56 L Blood Pressure [Le ft Arm] 155/78 H Pulse Oximetry 98 94 99 [facility] 07/31/22 16:15 07/31/22 15:00 07/31/22 19:45 Temperature 97.9 F 97.8 F Pulse Rate Pulse Rate [Pulse Oximeter] 83 83 80 Respiratory Rate 12 12 12 Blood Pressure Blood Pressure [Le ft Arm] 119/64 135/66 Pulse Oximetry 98 98 Oxygen Delivery [facility] Room Air Room Air 08/01/22 00:45 08/01/22 00:45 08/01/22 06:00 Temperature 98.4 F 98 F Pulse Rate Pulse Rate [Pulse Oximeter] 75 75 47 L Respiratory Rate 12 16 16 Blood Pressure Blood Pressure [Le ft Arm] 158/71 H 157/66 H Pulse Oximetry 96 98 Oxygen Delivery Me thod Room Air Room Air 08/01/22 07:00 Temperature 98.2 F Pulse Rate Pulse Rate [Pulse Oximeter] 98 Respiratory Rate 18 Blood Pressure Blood Pressure [Le ft Arm] 118/94 H Pulse Oximetry 99 Oxygen Delivery Me thod Room Air Documenting provider has reviewed patient's vital signs: yes Labs Labs: Laboratory Results - last 24 hr 07/31/22 07/31/22 07/31/22 11:36 11:36 11:36 WBC 12.13 H RBC 3.96 L Hgb 13.2 L Hct 38.3 MCV 97 MCH 33 MCHC 35 RDW Coeff of Samara 14.3 Plt Count 166 Neut % (Auto) 76.4 H Lymph % (Auto) 15.7 L [place] % (Auto) 7.3 Eos % (Auto) 0.2 Baso % (Auto) 0.2 Neut # (Auto) 9.30 H Lymph # (Auto) 1.90 [place] # (Auto) 0.90 Eos # (Auto) 0.00 Baso # (Auto) 0.00 Abs Immat Gran (auto) 0.00 Imm/Tot Granulo (auto) 0.2 INR 1.00 APTT 29 Sodium 139 Potassium 3.9 Chloride 107 Carbon Dioxide 20 BUN 17 Creatinine 0.9 Estimated Creat Clear 65.90 Estimated GFR 89 Glucose 146 H Calcium 9.6 SARS-CoV-2 (PCR) 07/31/22 08/01/22 11:37 05:57 WBC RBC Hgb 11.0 L Hct MCV MCH MCHC RDW Coeff of Samara Plt Count Neut % (Auto) Lymph % (Auto) [place] % (Auto) Eos % (Auto) Baso % (Auto) Neut # (Auto) Lymph # (Auto) [place] # (Auto) Eos # (Auto) Baso # (Auto) Abs Immat Gran (auto) Imm/Tot Granulo (auto) INR APTT Sodium Potassium Chloride Carbon Dioxide BUN Creatinine Estimated Creat Clear Estimated GFR Glucose Calcium SARS-CoV-2 (PCR) Negative SARS-CoV-2
--- NOTE | 2022-08-01 10:15 | CRLHL7_ITS ---
For Patients: As a result of the Cures Act, medical imaging exams and procedure reports are released immediately into your electronic medical record. You may view this report before your referring provider. If you have questions, please contact your health care provider. Indication: ORIF right humerus Technique: Four fluoroscopic images of the right humerus submitted. Fluoroscopy time 39.1 seconds. IMPRESSION: Fluoroscopic guidance for open reduction internal fixation humeral diaphyseal fracture. Dictated by Yovany Frias MD @ 08/02/2022 8:37:59 AM (Electronically Signed)
[2022-08-01 10:34] LABS: Hemoglobin A1C* 5.41 % (0-5.6)
[2022-08-01] MEDS: HYDROMORPHONE HCL 1 MG/ML CARTRIDGE IVP (10:58)
[2022-08-01] MEDS: fentaNYL 100 MCG/2 ML inj IVP (11:25)
[2022-08-01] MEDS: MIDAZOLAM HCL 1 MG/ML inj IVP (11:25)
--- NOTE | 2022-08-01 11:34 | SUR.PREOP ---
pt came from med/surg with consent signed
--- NOTE | 2022-08-01 11:36 | SUR.PREOP ---
Pt definately has episodes of sleep apnea when resting hob elevated 45degrees o2 sats down to 80% needed to startle pt to breath
--- NOTE | 2022-08-01 11:43 | SUR.PREOP ---
TIME?OUT:?1125 PT/RN/MDA?VERIFICATION?OF?SURGICAL?SITE,?PROCEDURE,?AND?CONSENT OBTAINED?PRIOR?TO?INVASIVE?PROCEDURE. right arm
[2022-08-01] MEDS: LACTATED RINGERS 1000 ML 1,000 ML 100 ML IV (12:00)
[2022-08-01] MEDS: CEFAZOLIN 2 GM in 0.9 % SODIUM CHLORIDE Mini-bag 100 ML IVPB ×2 (12:15→19:49)
--- NOTE | 2022-08-01 13:22 | P.NB_ITS ---
Nerve Block Nerve Block Time Seen by Provider: Date Seen: 08/01/22 Type of block requested by surgeon for post-operative analgesia: supraclavicular Side: right Time out performed: Yes Verification of patient name: Yes Verification of date of : Yes Site marking: site marked Name of person performing procedure: Min Continuous monitoring Was continuous monitoring of O2 sat, B/P, secured entrance monitor, recorded every 15 minutes?: Yes Procedure Checklist: sterile prep, needles and gloves Ultrasound guided. Images saved: Yes Medications given in 5ml increments after negative aspiration: Ropivicaine %: 0.5 mL: 20 Needle gauge: 22 Decadron (mg): 10 Precedex (mcg): 25 Patient tolerated procedure well: Yes Block Charges Block Charge (with Pro Fee): Brachial Plexus Use of Ultrasound Machine for Block: Yes- US Guidance/pain block
--- NOTE | 2022-08-01 14:47 | P.ORPRC_ITS ---
Procedure Note Date of procedure: 08/01/22 Procedure: PREOPERATIVE DIAGNOSIS: 1. Right proximal humerus fracture-comminuted, 3 part fracture with substantial displacement and angulation, and extension to the mid humeral shaft, closed, acute POSTOPERATIVE DIAGNOSIS: 1. Right proximal humerus fracture-comminuted, 3 part fracture with substantial displacement and angulation, and extension to the mid humeral shaft, closed, acute PROCEDURE: 1. Right proximal humerus 3 part fracture open reduction internal fixation. 2. [id number] - intraoperative fluoroscopy up to 1 hour. SURGEON: Eduard Maldonado MD. [employer] COUNSELORS: Antonio POLLOCK - Of note, a skilled early childhood teacher assistant was critical for this case to aid in patient positioning, tissue retraction, limb manipulation/positioning, awareness and protection of critical structures, and closure. ANESTHESIA: General plus supraclavicular block IMPLANTS: Arthrex alpha proximal humeral locking plate (14 hole) with numerous proximal locking screws and distal locking/nonlocking screws. In addition, 3.5 mm interfragmentary screws were utilized (x2). COMPLICATIONS: None evident INDICATIONS: The patient is a pleasant 76-year-old male who unfortunately slipped in his bathroom 07/31/2022 and landed onto his right shoulder in an awkward manner. Severe pain. Unable to use the right arm in any capacity. Called 911 himself. Presented [facility]. X-rays were obtained revealed a right proximal humerus fracture with extension to the midshaft. He lives alone. He is admitted to the hospital for medical evaluation orthopedics was consulted for surgical evaluation. Upon that evaluation, it was determined that surgery was indicated given the significant displacement and the patient's independent living needs. DESCRIPTION OF PROCEDURE: Following a thorough discussion of risks, benefits, and alternatives, consent was obtained and the right shoulder was marked. The patient was brought to the operating room and placed supine on the operating table. Induction of anesthesia was undertaken. 2 g IV Ancef and 1 g of tranexamic acid were administered within 1 hr of incision preoperatively. Appropriate time-out was performed identifying proper patient, site, and procedure. The operative extremity was prepped and draped in the appropriate sterile fashion using ChloraPrep after the patient was positioned supine with head in neutral alignment and all bony prominences well padded. A longitudinal incision was made for deltopectoral approach with extension to an anterolateral mid humeral approach. Sharp incision through skin and blunt dissection through subcutaneous tissue allowed us identify the deltoid muscle. This was mobilized laterally separate from the pectoralis. This was confirmed with palpation of the coracoid proximally. Distally, we were able identify the biceps muscle belly and continued our dissection just lateral to this. The biceps was retracted medially. Muscular cutaneous nerve was brought with the biceps tendon. The radial nerve was not encountered throughout this case. After mobilizing the tissue subperiosteally, the fracture fragments were more clearly identified and cleared of interposed hematoma and periosteum. Reduction was performed open with direct visualization into via Walter clamps were utilized to hold the reduction temporarily. 2 separate 3.5 mm nonlocking interfragmentary screws were then drilled, measured, overdrilled, and placed with excellent compression achieved. At this stage, the clamps removed, and a plate was selected. The plate was applied just lateral to the pectoralis insertion, anterior/medial to the deltoid insertion, and along the anterior humeral shaft but along the lateral proximal humerus consistent with the Arthrex self of plate design. C-arm confirmed the plate to be in appropriate position and a proximal and distal screw were 1st placed to confirm their trajectory and alignment. Multiple proximal locking screws were then drilled, measured, and placed. The locking guide was removed from the plate. We then moved to the distal holes and a nonlocking followed by 2 locking screws were applied in total distally. This essentially acted like a neutralization plate as the interfragmentary screws had excellent compression through the fracture site. Cm confirmed the plate to be in appropriate position and all screws to be in appropriate length. Thorough irrigation normal saline was performed. Closure was performed with 2-0 Stratafix followed by 4-0 Stratafix for subcutaneous and subcuticular closure layers, respectively. Dressings were applied, patient was woken from anesthesia, and transferred the recovery room in stable condition. A skilled early childhood teacher assistant was critical for this case to aid in patient positioning, tissue retraction, limb manipulation/positioning, awareness and protection of critical structures, and closure. PLAN: 1. Sling at all times operative extremity. 2. May come out of this for elbow, forearm, wrist, and digit range of motion. 3. Percocet for pain as needed. 4. Follow up with me in 2 weeks for wound check. 5. Encourage ambulation. But remain nonweightbearing operative extremity.
--- NOTE | 2022-08-01 14:56 | PC.NURSE ---
Pt right arm in sling, waiting for surgery at start of shift. Active ice to upper right arm. Pain controlled with Dilaudid per OCT. Urinal use in bed. Left to OR @ 1100. Surgery started @1240. At time of writing note (1499), pt has not returned to floor.
--- NOTE | 2022-08-01 15:19 | W.ANESCHARGE ---
Anesthesia Charges Start Date/Time Anesthesia Start Date: 08/01/22 Anesthesia Start Time: 12:01 Stop Date/Time Anesthesia Stop Date: 08/01/22 Anesthesia Stop Time: 15:17 Summary Emergency: No Extremes of Age: Over 71-CPT 61419
--- NOTE | 2022-08-01 15:23 | W.ANESCHARGE ---
Anesthesia Charges Start Date/Time Anesthesia Start Date: 08/01/22 Anesthesia Start Time: 12:01 Stop Date/Time Anesthesia Stop Date: 08/01/22 Anesthesia Stop Time: 15:17 Summary Emergency: No Extremes of Age: Over 71-CPT 75095
[2022-08-01] MEDS: ROSUVASTATIN CALCIUM 10 MG TABLET PO (20:52)
[2022-08-01] MEDS: SENNOSIDES 1 TAB TABLET 2 TAB PO (20:52)
[2022-08-02] MEDS: OXYCODONE 5 MG TABLET PO ×3 (01:00→11:02)
[2022-08-02] MEDS: CEFAZOLIN 2 GM in 0.9 % SODIUM CHLORIDE Mini-bag 100 ML IVPB ×2 (02:10→10:50)
--- NOTE | 2022-08-02 05:27 | PC.NURSE ---
Shift note: Pt is doing well, ambulated to and from bathroom with A1, walker and GB. Complained of pain between 2 and 3 and was effectively managed with Oxycone. Pt is on 0.5L oxygen. firmed passing gas but no BM at the moment. No N/V and other complications noted.
[2022-08-02 07:00] VITALS: BP 157/72; PULSE 88; RESP 18; TEMP 36.6; O2SAT 96
[2022-08-02 08:11] LABS: Hemoglobin* 9.6 gm/dL (13.5-17.5)
--- NOTE | 2022-08-02 09:06 | PC.NURSE ---
Same day surgery order on 08/01/22 cancelled in error. late entry - M/S Recovery on 08/01/22 post-operative, missed order
[2022-08-02] MEDS: ACETAMINOPHEN 500 MG TABLET 1000 MG PO (09:11)
[2022-08-02] MEDS: allopurinoL 300 MG TABLET PO (09:11)
[2022-08-02] MEDS: SODIUM CHLORIDE 0.9 % (FLUSH) 10 ML SYRINGE 5 ML IVF (09:12)
--- NOTE | 2022-08-02 09:25 | PM.DS1 ---
DS: Providers Provider Date Seen: 08/02/22 Date of admission: 07/31/22 Primary care physician: Bassam Gilliam MD Consults: PT, OT, Orthopedic surgery Attending Physician on discharge: Patricia Rosa MD Date of Discharge: 08/02/22 DS: Diagnosis Discharge Diagnosis (1) Fx humeral neck: Status: Acute Problem details: - s/p Right proximal humerus 3 part fracture open reduction internal fixation with Dr. Maldonado of Orthopedic Surgery on 08/01 (2) Complaint of melena: Status: Acute Problem details: - happened once prior to admission, normal stool since. Hemoccult stool pending. Recommend outpatient colonoscopy and hold Aspirin and cilostazol until then (3) Impaired fasting glucose: Status: Acute Problem details: - HgbA1C 5.4 (4) Peripheral arterial disease: Status: Acute Problem details: - RLE claudication, started Pletal just prior to admission - holding now due to surgery and possible melena (5) Acute blood loss anemia: Status: Acute Problem details: - suspect secondary to right humeral fracture DS: Summary Hospital Course Hospital Course: 76-year-old patient, admitted to the hospital after a mechanical fall at home that resulted in a comminuted right proximal humerus fracture requiring surgical intervention. Patient also noted to have 1 episode of melena prior to hospitalization; unclear if this was true GI bleeding or result of diet. Patient's hemoglobin did drop during stay; stable on discharge at 9.6. No further melena during hospitalization, and patient had no dizziness or lightheadedness. ASA and Pletal held upon discharge. Recommend close outpatient follow-up for hemoglobin monitoring and outpatient colonoscopy. Status at Discharge Functional status at discharge: independent ambulation Overall status at discharge: patient is progressing back to baseline Time Spent with Patient Time attestation: Total time spent providing and/or coordinating discharge services: Time spent: Less than 30 minutes Specific discharge activities: Medication reconciliation, care coordination Exam Narrative: Exam Narrative: GEN: Alert and oriented, nontoxic in appearance HEENT: Normal external ears, EOMIs bilaterally CV: RRR, No concerning murmurs, rubs, or gallops R: LCTA bilaterally without concerning wheezing, rales, or rhonchi, air movement adequate Ext: Wearing shoulder immobilizer on right Skin: No concerning skin lesions or rashes on exposed skin Neuro: Nonfocal Psych: Appropriate Const: Vital Signs, click to edit/add: Vital Signs - 24 hr 08/01/22 11:34 08/01/22 11:42 08/01/22 11:54 Temperature 98.2 F 98.2 F 98.2 F Pulse Rate Pulse Rate [Pulse Oximeter] 100 100 76 Pulse Rate [Right Pulse Oximeter] 100 96 91 Respiratory Rate 16 16 16 Blood Pressure Blood Pressure [Le ft Arm] 104/69 113/84 111/67 Pulse Oximetry 99 99 99 Oxygen Delivery Me thod Nasal Cannula Nasal Cannula Nasal Cannula Oxygen Flow Rate 3 3 3 08/01/22 15:12 08/01/22 15:22 08/01/22 15:17 Temperature 97.6 F Pulse Rate 85 85 92 Pulse Rate [Pulse Oximeter] Pulse Rate [Right Pulse Oximeter] Respiratory Rate 12 12 12 Blood Pressure 150/78 H 149/86 H 159/75 H Blood Pressure [Le ft Arm] Pulse Oximetry 96 96 96 Oxygen Delivery Me thod Nasal Cannula Nasal Cannula Nasal Cannula Oxygen Flow Rate 4 4 4 08/01/22 15:27 08/01/22 15:32 08/01/22 15:37 Temperature Pulse Rate 87 82 80 Pulse Rate [Pulse Oximeter] Pulse Rate [Right Pulse Oximeter] Respiratory Rate 12 12 14 Blood Pressure 147/89 H 146/79 H 135/76 Blood Pressure [Le ft Arm] Pulse Oximetry 96 96 97 Oxygen Delivery Me thod Nasal Cannula Room Air Room Air Oxygen Flow Rate 4 08/01/22 15:42 08/01/22 15:45 08/01/22 16:00 Temperature 98.1 F 97.7 F Pulse Rate 80 86 Pulse Rate [Pulse Oximeter] Pulse Rate [Right Pulse Oximeter] Respiratory Rate 14 16 16 Blood Pressure 138/79 Blood Pressure [Le ft Arm] 143/59 H Pulse Oximetry 97 Oxygen Delivery Me thod Room Air Nasal Cannula Oxygen Flow Rate 2 08/01/22 16:00 08/01/22 16:00 08/01/22 16:15 Temperature 97.7 F Pulse Rate Pulse Rate [Pulse Oximeter] 97 96 Pulse Rate [Right Pulse Oximeter] 87 Respiratory Rate 16 16 16 Blood Pressure Blood Pressure [Le ft Arm] 143/59 H 145/77 H 134/68 Pulse Oximetry 97 97 96 Oxygen Delivery Me thod Nasal Cannula Nasal Cannula Nasal Cannula Oxygen Flow Rate 2 2 1 08/01/22 16:30 08/01/22 16:45 08/01/22 17:00 Temperature Pulse Rate Pulse Rate [Pulse Oximeter] 96 97 80 Pulse Rate [Right Pulse Oximeter] Respiratory Rate 16 16 16 Blood Pressure Blood Pressure [Le ft Arm] 130/77 128/70 129/64 Pulse Oximetry 96 97 94 Oxygen Delivery Me thod Nasal Cannula Nasal Cannula Nasal Cannula Oxygen Flow Rate 0.5 0.5 0.5 08/01/22 17:30 08/01/22 18:00 08/01/22 19:00 Temperature 98.1 F Pulse Rate Pulse Rate [Pulse Oximeter] 81 108 H 91 Pulse Rate [Right Pulse Oximeter] Respiratory Rate 16 16 16 Blood Pressure Blood Pressure [Le ft Arm] 115/52 L 161/79 H 133/63 Pulse Oximetry 95 97 96 Oxygen Delivery Me thod Nasal Cannula Nasal Cannula Nasal Cannula Oxygen Flow Rate 0.5 0.5 0.5 08/01/22 20:00 08/01/22 23:00 08/01/22 23:00 Temperature 98 F 97.7 F Pulse Rate Pulse Rate [Pulse Oximeter] 86 87 Pulse Rate [Right Pulse Oximeter] Respiratory Rate 18 18 18 Blood Pressure Blood Pressure [Le ft Arm] 115/67 147/78 H Pulse Oximetry 96 96 Oxygen Delivery Me thod Nasal Cannula Nasal Cannula Oxygen Flow Rate 0.5 0.5 08/02/22 07:00 Temperature 97.9 F Pulse Rate Pulse Rate [Pulse Oximeter] 88 Pulse Rate [Right Pulse Oximeter] Respiratory Rate 18 Blood Pressure Blood Pressure [Le ft Arm] 157/72 H Pulse Oximetry 96 Oxygen Delivery Me thod Room Air Oxygen Flow Rate DS: Data Data Completed and Pending Labs on day of discharge: Labs from last 24 hours 08/02/22 08/01/22 07:40 05:57 Hgb 9.6 L Hemoglobin A1c 5.41 Discharge Plan Discharge Disposition: Home, Self-Care Discharging Surgeon: Eduard Maldonado Follow-Up Appointment: 2 weeks PO with [facility] Prescriptions: New acetaminophen 500 mg capsule 500 - 1,000 mg PO Q6H MDD 4000mg PRNQty: 100 0RF oxycodone 5 mg tablet 2.5 - 5 mg PO Q4-6H MDD 6 PRN (Reason: pain) Qty: 30 0RF Rx Instructions: Take as needed for postop pain: 2.5mg mild pain, 5mg moderate-severe pain; wean as tolerated. Continued allopurinol 300 mg tablet 300 mg PO DAILY rosuvastatin 10 mg tablet 10 mg PO HS multivitamin [Daily Multi-Vitamin] Tablet 1 tab PO DAILY Discontinued cilostazol 100 mg tablet 100 mg PO BID aspirin [Adult Aspirin Regimen] 81 mg tablet,delayed release (DR/EC) 81 mg PO DAILY Activity Level: Activity as Tolerated and Other Activity Detail: No weight-bearing right upper extremity; remain in sling unless performing gentle elbow range of motion or when bathing. Patient Instructions: Acetaminophen (By mouth), Oxycodone, Rapid Release (By mouth), ORIF of an Arm Fracture (DC) Additional Instructions: F/u with PCP in 5 days Outpatient colonoscopy for melena - hold aspirin and cilostazol until then. Wound: ?Do not remove original dressing; we will remove this at first postop visit in 2 weeks. Only remove dressing if integrity is in question. ?No immersing wound in water; showering okay; light scrub with your hand and body soap, rinse, dab dry ?Sutures are under the skin, will dissolve; allow surgical glue to come off naturally; do not scrub the wound or apply ointments/lotions ?Call our office with any redness that streaks, excessive drainage from the wound, or wound gapping. Ice/Elevate: ?Ice as needed for swelling and discomfort (cryocuff or ice pack); elevate hand/forearm about heart if possible Driving: ?Do not drive while taking narcotic pain medication ?Do not smoke; do no drink alcohol especially when taking postoperative oral narcotic medication Seek Care from you Primary Care Provider if you experience the following issues in the postoperative phase and beyond: Follow up: ?Ortho surgeon follow-up in 6 weeks; repeat radiographs right humerus ?PA-C visit in 2 weeks *If there are any acute concerns regarding your surgery, please call our orthopedic clinic ([phone]) Forms: Svpply Info Instructions Follow-up: Eduard Maldonado MD [Staff Physician] - (Set up 6-week surgeon follow up at PA visit. ) Bassam Gilliam MD [Primary Care Provider] - 08/16/22 11:50 am (Consider seeing Dr. Gilliam early next week before [place] trip to recheck Hgb (9.6 on discharge)) Nilson Varela PA-C [Physician Reaming Machine Operator For [employer]] - 08/16/22 9:10 am (Arrival time is 8:50am for check in/paperwork ) Discharge Orders: Discharge Order (Routine); Ordered 08/02/22 Ordered By: Nilson Varela
[2022-08-02 11:04] VITALS: BP 138/79; PULSE 86; RESP 18; TEMP 36.6
--- NOTE | 2022-08-02 13:17 | P.ORPN_ITS ---
Subjective Subjective Date Seen: 08/02/22 Principal diagnosis: Status postop day 1 right humerus ORIF Interval history: Patient reports doing well. No acute events over night. Pain managed with scheduled /PRN medications and ice; patient states his pain is very well managed. Denies fevers, chills, aches, N/V, CP, SOB/RANDALL, tachycardia, or lightheadedness. He is inquiring about his [place] trip that is next Saturday08/07/2022 Ortho Exam Narrative Exam Narrative: -Patient appears comfortable in bed; no apparent acute distress -Alert and oriented times 3 -Operative shoulder/upper arm swollen; soft, supple tissues; no obvious erythema. Ecchymosis minimal. Warmth appropriate -Surgical dressing clean, dry, intact; no obvious drainage, no erythematous streaking peripheral to the bandage -Bilateral calves soft and supple; no significant swelling, edema, tenderness, erythema, discoloration, warmth, or palpable cords -2+ radial pulse, intact dermatomes and myotomes distally (5/5 strength). He is unable to demonstrate shoulder abduction today Const Vital Signs, click to edit/add: Vital Signs - 24 hr 08/01/22 15:12 08/01/22 15:22 08/01/22 15:17 Temperature 97.6 F Pulse Rate 85 85 92 Pulse Rate [Pulse Oximeter] Pulse Rate [Right Pulse Oximeter] Respiratory Rate 12 12 12 Blood Pressure 150/78 H 149/86 H 159/75 H Blood Pressure [Left Arm] Pulse Oximetry 96 96 96 Oxygen Delivery Method Nasal Cannula Nasal Cannula Nasal Cannula Oxygen Flow Rate 4 4 4 08/01/22 15:27 08/01/22 15:32 08/01/22 15:37 Temperature Pulse Rate 87 82 80 Pulse Rate [Pulse Oximeter] Pulse Rate [Right Pulse Oximeter] Respiratory Rate 12 12 14 Blood Pressure 147/89 H 146/79 H 135/76 Blood Pressure [Left Arm] Pulse Oximetry 96 96 97 Oxygen Delivery Method Nasal Cannula Room Air Room Air Oxygen Flow Rate 4 08/01/22 15:42 08/01/22 15:45 08/01/22 16:00 Temperature 98.1 F 97.7 F Pulse Rate 80 86 Pulse Rate [Pulse Oximeter] Pulse Rate [Right Pulse Oximeter] Respiratory Rate 14 16 16 Blood Pressure 138/79 Blood Pressure [Left Arm] 143/59 H Pulse Oximetry 97 Oxygen Delivery Method Room Air Nasal Cannula Oxygen Flow Rate 2 08/01/22 16:00 08/01/22 16:00 08/01/22 16:15 Temperature 97.7 F Pulse Rate Pulse Rate [Pulse Oximeter] 97 96 Pulse Rate [Right Pulse Oximeter] 87 Respiratory Rate 16 16 16 Blood Pressure Blood Pressure [Left Arm] 143/59 H 145/77 H 134/68 Pulse Oximetry 97 97 96 Oxygen Delivery Method Nasal Cannula Nasal Cannula Nasal Cannula Oxygen Flow Rate 2 2 1 08/01/22 16:30 08/01/22 16:45 08/01/22 17:00 Temperature Pulse Rate Pulse Rate [Pulse Oximeter] 96 97 80 Pulse Rate [Right Pulse Oximeter] Respiratory Rate 16 16 16 Blood Pressure Blood Pressure [Left Arm] 130/77 128/70 129/64 Pulse Oximetry 96 97 94 Oxygen Delivery Method Nasal Cannula Nasal Cannula Nasal Cannula Oxygen Flow Rate 0.5 0.5 0.5 08/01/22 17:30 08/01/22 18:00 08/01/22 19:00 Temperature 98.1 F Pulse Rate Pulse Rate [Pulse Oximeter] 81 108 H 91 Pulse Rate [Right Pulse Oximeter] Respiratory Rate 16 16 16 Blood Pressure Blood Pressure [Left Arm] 115/52 L 161/79 H 133/63 Pulse Oximetry 95 97 96 Oxygen Delivery Method Nasal Cannula Nasal Cannula Nasal Cannula Oxygen Flow Rate 0.5 0.5 0.5 08/01/22 20:00 08/01/22 23:00 08/01/22 23:00 Temperature 98 F 97.7 F Pulse Rate Pulse Rate [Pulse Oximeter] 86 87 Pulse Rate [Right Pulse Oximeter] Respiratory Rate 18 18 18 Blood Pressure Blood Pressure [Left Arm] 115/67 147/78 H Pulse Oximetry 96 96 Oxygen Delivery Method Nasal Cannula Nasal Cannula Oxygen Flow Rate 0.5 0.5 08/02/22 07:00 08/02/22 11:04 Temperature 97.9 F 97.9 F Pulse Rate 86 Pulse Rate [Pulse Oximeter] 88 Pulse Rate [Right Pulse Oximeter] Respiratory Rate 18 18 Blood Pressure 138/79 Blood Pressure [Left Arm] 157/72 H Pulse Oximetry 96 Oxygen Delivery Method Room Air Oxygen Flow Rate Assessment and Plan Assessment and plan (1) Fx humeral neck: Problem details: - s/p day 1 right proximal humerus 3 part fracture open reduction internal fixation with Dr. Maldonado of Orthopedic Surgery on 08/01 Status: Acute (2) Complaint of melena: Problem details: - happened once prior to admission, normal stool since. Hemoccult stool pending. Recommend outpatient colonoscopy and hold Aspirin and cilostazol until then Status: Acute (3) Impaired fasting glucose: Problem details: - HgbA1C 5.4 Status: Acute (4) Peripheral arterial disease: Problem details: - RLE claudication, started Pletal just prior to admission - holding now due to surgery and possible melena Status: Acute (5) Acute blood loss anemia: Problem details: - suspect secondary to right humeral fracture, hemoglobin 9.6-asymptomatic Status: Acute Plan - Complete 23 hour perioperative antibiotics. - PT/OT consult for education and assistance. - Social work consult for discharge planning - Prescribed analgesics as needed - Anticipation is for discharge to home 08/02/2022 if the patient remains medically stable, pain is controlled, and they are safe with mobilization. - regarding his [place] flight, where he will be for 1 month, we will help pen a note asking for postponement or reimbursement of fees for this flight.
--- NOTE | 2022-08-02 13:23 | P.DS_ITS ---
DS: Providers Provider Date Seen: 08/02/22 Date of admission: Med/Surg Recovery 07/31/2022 Primary care physician: Bassam Gilliam MD Consults: 07/31/22 15:23 Consult to Physical Therapy [CONS] Routine Comment: Reason(s) for PT Consult:: Evaluate and Treat Any Restrictions?:: No Restrictions Consult to Physical Therapy [CONS] Routine Comment: Reason(s) for PT Consult:: Evaluate and Treat Any Restrictions?:: UE Immobilized 07/31/22 15:25 Consult to Occupational Therapy [CONS] Routine Comment: Reason(s) for OT Consult:: Evaluate and Treat Any Restrictions?:: UE Immobilized 08/01/22 15:55 Consult to Physical Therapy [CONS] Routine Comment: Reason(s) for PT Consult:: Evaluate and Treat Any Restrictions?:: No Restrictions Attending Physician on discharge: Charu Aceves MD Date of Discharge: 08/02/22 DS: Diagnosis Discharge Diagnosis (1) Fracture, humerus closed, shaft: Status: Acute Problem details: Right proximal humerus fracture-comminuted, 3 part fracture with substantial displacement and angulation, and extension to the mid humeral shaft, closed, acute status post ORIF midshaft right humerus DS: Summary Hospital Course Hospital Course: 76-year-old patient, admitted to the hospital after a mechanical fall at home that resulted in a comminuted right proximal humerus fracture requiring surgical intervention. Patient also noted to have 1 episode of melena prior to hospitalization; unclear if this was true GI bleeding or result of diet. Patient's hemoglobin did drop during stay; stable on discharge at 9.6. No further melena during hospitalization, and patient had no dizziness or lightheadedness. ASA and Pletal held upon discharge. Recommend close outpatient follow-up for hemoglobin monitoring and outpatient colonoscopy. The patient has a history of right, displaced, angulated midshaft humerus fracture. After appropriate preoperative evaluation, the patient underwent right humerus ORIF. Postoperatively they progressed to PT/OT and were felt ready and prepared for discharge to home with appropriate pain medication. Status at Discharge Functional status at discharge: independent ambulation Overall status at discharge: patient is progressing back to baseline Time Spent with Patient Time attestation: Total time spent providing and/or coordinating discharge services: Time spent: Less than 30 minutes Specific discharge activities: No weight-bearing right upper extremity. Sling at all times. Exam Const: Vital Signs, click to edit/add: Vital Signs - 24 hr 08/01/22 15:12 08/01/22 15:22 08/01/22 15:17 Temperature 97.6 F Pulse Rate 85 85 92 Pulse Rate [Pulse Oximeter] Pulse Rate [Right Pulse Oximeter] Respiratory Rate 12 12 12 Blood Pressure 150/78 H 149/86 H 159/75 H Blood Pressure [Le ft Arm] Pulse Oximetry 96 96 96 Oxygen Delivery Me thod Nasal Cannula Nasal Cannula Nasal Cannula Oxygen Flow Rate 4 4 4 08/01/22 15:27 08/01/22 15:32 08/01/22 15:37 Temperature Pulse Rate 87 82 80 Pulse Rate [Pulse Oximeter] Pulse Rate [Right Pulse Oximeter] Respiratory Rate 12 12 14 Blood Pressure 147/89 H 146/79 H 135/76 Blood Pressure [Le ft Arm] Pulse Oximetry 96 96 97 Oxygen Delivery Me thod Nasal Cannula Room Air Room Air Oxygen Flow Rate 4 08/01/22 15:42 08/01/22 15:45 08/01/22 16:00 Temperature 98.1 F 97.7 F Pulse Rate 80 86 Pulse Rate [Pulse Oximeter] Pulse Rate [Right Pulse Oximeter] Respiratory Rate 14 16 16 Blood Pressure 138/79 Blood Pressure [Le ft Arm] 143/59 H Pulse Oximetry 97 Oxygen Delivery Me thod Room Air Nasal Cannula Oxygen Flow Rate 2 08/01/22 16:00 08/01/22 16:00 08/01/22 16:15 Temperature 97.7 F Pulse Rate Pulse Rate [Pulse Oximeter] 97 96 Pulse Rate [Right Pulse Oximeter] 87 Respiratory Rate 16 16 16 Blood Pressure Blood Pressure [Le ft Arm] 143/59 H 145/77 H 134/68 Pulse Oximetry 97 97 96 Oxygen Delivery Me thod Nasal Cannula Nasal Cannula Nasal Cannula Oxygen Flow Rate 2 2 1 08/01/22 16:30 08/01/22 16:45 08/01/22 17:00 Temperature Pulse Rate Pulse Rate [Pulse Oximeter] 96 97 80 Pulse Rate [Right Pulse Oximeter] Respiratory Rate 16 16 16 Blood Pressure Blood Pressure [Le ft Arm] 130/77 128/70 129/64 Pulse Oximetry 96 97 94 Oxygen Delivery Me thod Nasal Cannula Nasal Cannula Nasal Cannula Oxygen Flow Rate 0.5 0.5 0.5 08/01/22 17:30 08/01/22 18:00 08/01/22 19:00 Temperature 98.1 F Pulse Rate Pulse Rate [Pulse Oximeter] 81 108 H 91 Pulse Rate [Right Pulse Oximeter] Respiratory Rate 16 16 16 Blood Pressure Blood Pressure [Le ft Arm] 115/52 L 161/79 H 133/63 Pulse Oximetry 95 97 96 Oxygen Delivery Me thod Nasal Cannula Nasal Cannula Nasal Cannula Oxygen Flow Rate 0.5 0.5 0.5 08/01/22 20:00 08/01/22 23:00 08/01/22 23:00 Temperature 98 F 97.7 F Pulse Rate Pulse Rate [Pulse Oximeter] 86 87 Pulse Rate [Right Pulse Oximeter] Respiratory Rate 18 18 18 Blood Pressure Blood Pressure [Le ft Arm] 115/67 147/78 H Pulse Oximetry 96 96 Oxygen Delivery Me thod Nasal Cannula Nasal Cannula Oxygen Flow Rate 0.5 0.5 08/02/22 07:00 08/02/22 11:04 Temperature 97.9 F 97.9 F Pulse Rate 86 Pulse Rate [Pulse Oximeter] 88 Pulse Rate [Right Pulse Oximeter] Respiratory Rate 18 18 Blood Pressure 138/79 Blood Pressure [Le ft Arm] 157/72 H Pulse Oximetry 96 Oxygen Delivery Me thod Room Air Oxygen Flow Rate DS: Data Data Completed and Pending Labs on day of discharge: Labs from last 24 hours 08/02/22 07:40 Hgb 9.6 L Discharge Plan Discharge Disposition: Home, Self-Care Discharging Surgeon: Eduard Maldonado Follow-Up Appointment: 2 weeks PO with [facility] Prescriptions: New acetaminophen 500 mg capsule 500 - 1,000 mg PO Q6H MDD 4000mg PRNQty: 100 0RF oxycodone 5 mg tablet 2.5 - 5 mg PO Q4-6H MDD 6 PRN (Reason: pain) Qty: 30 0RF Rx Instructions: Take as needed for postop pain: 2.5mg mild pain, 5mg moderate-severe pain; wean as tolerated. Continued allopurinol 300 mg tablet 300 mg PO DAILY rosuvastatin 10 mg tablet 10 mg PO HS multivitamin [Daily Multi-Vitamin] Tablet 1 tab PO DAILY Discontinued cilostazol 100 mg tablet 100 mg PO BID aspirin [Adult Aspirin Regimen] 81 mg tablet,delayed release (DR/EC) 81 mg PO DAILY Activity Level: Activity as Tolerated and Other Activity Detail: No weight-bearing right upper extremity; remain in sling unless performing gentle elbow range of motion or when bathing. Patient Instructions: Acetaminophen (By mouth), Oxycodone, Rapid Release (By mouth), ORIF of an Arm Fracture (DC) Additional Instructions: F/u with PCP in 5 days Outpatient colonoscopy for melena - hold aspirin and cilostazol until then. Wound: ?Do not remove original dressing; we will remove this at first postop visit in 2 weeks. Only remove dressing if integrity is in question. ?No immersing wound in water; showering okay; light scrub with your hand and body soap, rinse, dab dry ?Sutures are under the skin, will dissolve; allow surgical glue to come off naturally; do not scrub the wound or apply ointments/lotions ?Call our office with any redness that streaks, excessive drainage from the wound, or wound gapping. Ice/Elevate: ?Ice as needed for swelling and discomfort (cryocuff or ice pack); elevate hand/forearm about heart if possible Driving: ?Do not drive while taking narcotic pain medication ?Do not smoke; do no drink alcohol especially when taking postoperative oral narcotic medication Seek Care from you Primary Care Provider if you experience the following issues in the postoperative phase and beyond: Follow up: ?Ortho surgeon follow-up in 6 weeks; repeat radiographs right humerus ?PA-C visit in 2 weeks *If there are any acute concerns regarding your surgery, please call our orthopedic clinic ([phone]) Forms: [facility] [employer] Info Instructions Follow-up: Eduard Maldonado MD [Staff Physician] - (Set up 6-week surgeon follow up at PA visit. ) Bassam Gilliam MD [Primary Care Provider] - 08/16/22 11:50 am (Consider seeing Dr. Gilliam early next week before [place] trip to recheck Hgb (9.6 on discharge)) Nilson Varela PA-C [Physician [employer] Plant Maintenance [employer]ic] - 08/16/22 9:10 am (Arrival time is 8:50am for check in/paperwork ) Discharge Orders: Discharge Order (Routine); Ordered 08/02/22 Ordered By: Nilson Varela
== END 2022-08-02 11:40 | disposition home or self-care (01) ==
LOC: ED 13:07 → MEDSURG 16:27 → SS 08-01 10:31 → MEDSURG 08-01 10:56
PROVIDERS: Family Medicine; Orthopaedic Surgery Sports Medicine; Emergency Provider Family Medicine; PCP Family Medicine; Visit Provider Family Medicine
PROC: (CPT 23615; principal; 2022-08-01 10:15)
DX: S42.291A Other displaced fracture of upper end of right humerus, initial encounter for closed fracture (principal); W01.198A Fall on same level from slipping, tripping and stumbling with subsequent striking against other object, initial encounter; Y92.002 Bathroom of unspecified non-institutional (private) residence as the place of occurrence of the external cause; D62 Acute posthemorrhagic anemia; I73.9 Peripheral vascular disease, unspecified; K92.1 Melena; R73.01 Impaired fasting glucose; F17.290 Nicotine dependence, other tobacco product, uncomplicated; M10.9 Gout, unspecified; E66.09 Other obesity due to excess calories; Z68.29 Body mass index [BMI] 29.0-29.9, adult
CPT/HCPCS: 23615; 01712; 36415; 64415; 70450; 71046; 72125; 73030; 73060; 76942; 80048; 83036; 85018; 85025; 85610; 85730; 87635; 93005; 94761; 97110; 97116; 97161; 97165; 97530; 97535; 99100; 99284; 99285; A9270; C1713; J0330; J0690; J1100; J1170; J2250; J2370; J2405; J2704; J2795; J3010; J7120

== ENCOUNTER 2022-10-30 08:00 | Outpatient (RCR) | payer MEDICARE, BC, SELFPAY ==
--- NOTE | 2022-08-21 13:00 | PT.OPEX ---
PT [place] Outpatient Eval PT [facility] Outpatient Eval Start: 08/21/22 10:36 Freq: Status: Active Protocol: Document 08/21/22 10:36 NAGI (Rec: 08/21/22 11:16 NAGI [id number]) E-signed By Rosa Estrella DPT Physical Therapy Outpatient Evaluation Insurance Information Recert Due Date 11/19/22 Insurance Name Medicare B,[employer] Medical Diagnosis s/p ORIF R humeral fx 08/01/22 Treating Diagnosis s/p ORIF R humeral fx 08/01/22 with R shoulder pain, impaired R shoulder ROM, impaired R shoulder/UE strength, currently restricted use of R shoulder/UE, interrupted sleep Subjective Subjective Patient reports falling in the bathroom at home 07/31 with R humeral fx. He is s/p ORIF R humeral fx on 08/01. Patient reports being in a sling since surgery but states he was given the ok to remove the sling at home and he can use R shoulder/UE some in lower levels. States he is able to use R hand for some eating/ drinking and writing. Has not been doing any reaching/ lifting. He is doing elbow, wrist, hand ROM exercises at home. He is using pain meds before bed to help with sleep. Sleep is interrupted some. Patient is sleeping in his recliner chair, not back to sleeping in his bed yet. He is using ibuprofen as needed during the day. Pain range 0- 1/10. Date of Last Physician Visit 08/16/22 Date of Surgery (If applicable) 08/01/22 Current Work Status Retired Precautions Treatment Precautions/Contraindications Per PA note: PT for PROM at this time, do not push into pain. Has f/u with MD at 6 weeks post op and will progress with PT at that time as able. Assessment Assessment/Impression Patient is a 76 year old male s/p fall at home on 07/31 with R humeral fx. He is s/p ORIF R humeral fx 08/01/22 with R shoulder pain, impaired R shoulder ROM, impaired R shoulder/UE strength, currently restricted use of R shoulder/UE, interrupted sleep . Pain range 0-1/10. Patient is using pain meds as needed, typically before bed. He is using ibuprofen as needed during the day. Patient is wearing a R UE sling. States that he was told he could take the sling off at home and use his R shoulder/UE for lower level activities. He is doing elbow, wrist, and hand ROM exercises. Per PA note, PT may start PROM at this time, not pushing into pain. Patient has f/u with MD at 6 weeks post op and they well progress his activities at that time if he is doing well. Able to initiate R shoulder PROM this session and instructed in R shoulder codmans. Patient would benefit from skilled PT for pain/sx management, improved R shoulder ROM, improved R shoulder/UE mobility/strength, return to full functional use of R shoulder/UE, and establishment of HEP. Plan of Care Rehabilitation Potential Good Physical Therapy Goals 1. Decrease/maintain R shoulder pain to less than/ equal to 3/10 with daily activities and with the progression of PT activities over the next 6-8 weeks. 2. Improve R shoulder PROM to WFL within 4-6 weeks to prepare for return to functional use of R shoulder/UE. 3. Improve R shoulder AROM to WFL within 8-10 weeks for return to functional use of R shoulder/ UE with daily activities. 4. Improve R shoulder/UE strength to WFL over the next 10-12 weeks for return to full functional use of R shoulder/UE with daily activities. 5. Patient will be I with HEP within 12 weeks for progression toward above goals, ongoing self management of pain/sx, ongoing self improvements in ROM/strength/function, and for return to full functional use of R shoulder/UE with daily activities. Coordination/Communication With Referral Source Treatment Plan/Direct Interventions Manual Therapy,Therapeutic Exercises Frequency/Duration 1-2x/week Patient Will Be Discharged From Therapy Completion of LTG(s),Skills Plateau,Independent w/HEP, Independently Progressing Evaluation Billing Untimed Code Treatment Minutes 24 Complexity Moderate Certification Information Initial Certification Date 08/21/22 Ending Certification Date 11/19/22 Provider Signature Shows Agreement With POC & Medical Necessity Physician Signature & Date Requested Please Sign/Date Here Physician Comment/Change : Physician NPI Number #
== END 2022-12-18 15:10 | disposition home or self-care (01) ==
PROVIDERS: PCP Family Medicine; Visit Provider Physician Assistant Surgical
DX: M25.511 Pain in right shoulder (principal); Z98.890 Other specified postprocedural states; Z74.09 Other reduced mobility; Z51.89 Encounter for other specified aftercare
CPT/HCPCS: 97110; 97140; 97162